=== PATIENT | female | born 2000 | race African-American/Black ===

== ENCOUNTER 2021-11-18 17:37 | Day surgery (SDC) | payer BC ==
[2021-11-18] MEDS ORDERED: hydrALAZINE 20 MG/ML VIAL SLOW IVP PRN (17:55)
[2021-11-18 18:09] VITALS: BMI 20.5
[2021-11-18] MEDS ORDERED: Lactated Ringer's 1,000 ML IV SCH (18:30)
[2021-11-18 20:50] LABS: Bilirubin Neg (Negative); Blood, Urine Negative (Negative); Clarity Clear (Clear); Glucose, Urine (Dipstick) Normal (Negative); Ketone, Urine Negative (Negative); Leukocyte 100 (Negative); Nitrite Negative (Negative); Protein, Urine (Dipstick) Negative (Neg-Trace); Urobilinogen Normal mg/dL (Less than 2)
[2021-11-18 20:51] LABS: Urine Culture Reflex No No
[2021-11-18 20:57] LABS: Bacteria/HPF Rare-Few HPF (None Seen); RBC/HPF 0-3 HPF (0-3); Squamous Epithelial 0-3 HPF (0-3)
[2021-11-19] MEDS ORDERED: Prenatal Vitamin 1 TAB PO SCH (09:00)
== END 2021-11-18 22:29 | disposition home or self-care (01) ==
LOC: CSHLD/OP 17:37
PROVIDERS: ATTEND Obstetrics & Gynecology
DX: O26.852 Spotting complicating pregnancy, second trimester (principal); Z3A.26 26 weeks gestation of pregnancy
CPT/HCPCS: 81001; 87086; 87480; 87510; 87660; 96360; 99285

== ENCOUNTER 2021-12-26 15:01 | Day surgery (SDC) | payer BC ==
[2021-12-26 15:38] VITALS: BMI 21.1
[2021-12-26] MEDS ORDERED: hydrALAZINE 20 MG/ML VIAL SLOW IVP PRN (16:37)
[2021-12-26] MEDS ORDERED: Lactated Ringer's 1,000 ML IV SCH (16:45)
[2021-12-26] MEDS ORDERED: Acetaminophen 500 MG TAB PO SCH (17:00)
== END 2021-12-26 18:10 | disposition home health service (06) ==
LOC: CSHLD/OP 15:01
PROVIDERS: ATTEND Obstetrics & Gynecology
DX: O26.893 Other specified pregnancy related conditions, third trimester (principal); R55 Syncope and collapse; R10.31 Right lower quadrant pain; Z3A.32 32 weeks gestation of pregnancy
CPT/HCPCS: 96360; 96361; 99283

== ENCOUNTER 2022-02-05 05:18 | Inpatient (IN) | payer BC ==
[2022-02-05 05:52] VITALS: BMI 21.7
[2022-02-05] MEDS ORDERED: hydrALAZINE 20 MG/ML VIAL SLOW IVP PRN ×3 (06:01→18:25)
[2022-02-05] MEDS ORDERED: Butorphanol Tartrate 1 MG/ML VIAL SLOW IVP PRN (06:01)
[2022-02-05] MEDS ORDERED: Bupivacaine 0.25% HCL 30 ML VIAL ONE (07:00)
[2022-02-05] MEDS ORDERED: Ondansetron PF 4 MG/2 ML Vial IVP PRN ×3 (08:42→18:25)
[2022-02-05] MEDS ORDERED: Carboprost 250 MCG/ML AMP IM PRN (08:42)
[2022-02-05] MEDS ORDERED: Promethazine HCl 25 MG/ML VIAL IM PRN ×3 (08:42→18:25)
[2022-02-05] MEDS ORDERED: Methylergonovine 0.2 MG/ML VIAL IM PRN ×2 (08:42→18:25)
[2022-02-05] MEDS ORDERED: HYDROcodone/Acetaminophen 5/325 mg Tablet PO PRN ×3 (08:42→18:25)
[2022-02-05] MEDS ORDERED: Misoprostol 200 MCG TAB PR PRN (08:42)
[2022-02-05] MEDS ORDERED: Diphenoxylate HCl/Atropine Tablet PO PRN ×2 (08:42)
[2022-02-05] MEDS ORDERED: Lidocaine 1% (PF) 30 ML VIAL SC PRN (08:42)
[2022-02-05] MEDS ORDERED: Ibuprofen 800 MG TAB PO PRN (08:42)
[2022-02-05] MEDS ORDERED: Acetaminophen 500 MG TAB PO PRN (08:42)
[2022-02-05] MEDS ORDERED: Lactated Ringer's 1,000 ML IV SCH (08:45)
[2022-02-05] MEDS ORDERED: NS w/ Oxytocin 30 units 500 ML IV SCH ×2 (08:45→18:25)
[2022-02-05 09:14] LABS: Hemoglobin 8.2 g/dL (12.0-15.5); Mean Corpuscular HGB CONC 29.8 g/dL (32.0-36.0); Mean Corpuscular Volume 73.9 fl (81.6-98.3); Platelet Count 445 10x3/uL (150-450); RBC Distribution Width 17.3 % (11.5-14.5); Red Blood Cell (RBC) Count 3.72 10x6/uL (3.90-5.03); White Blood Cell (WBC) Count 10.5 10x3/uL (3.5-10.5)
[2022-02-05 09:48] LABS: HBSAg Index 0.15 S/CO (0-0.99); Hep B Surf Ag Non-Reactive S/CO (NonReactive)
[2022-02-05 09:57] LABS: Syphilis Antibody Nonreactive (Nonreactive); Syphilis Antibody Index 0.05 S/CO (<1.00 Non-Reactive)
[2022-02-05] MEDS ORDERED: Fentanyl 2 mcg/Bup 0.1% Cadd 100 ML ONE (10:01)
[2022-02-05] MEDS ORDERED: ePHEDrine Sulfate 50 MG/10 ML VIAL SLOW IVP PRN (10:03)
[2022-02-05] MEDS ORDERED: Naloxone HCl 0.4 mg/ml Vial IVP PRN ×2 (10:03)
[2022-02-05] MEDS ORDERED: diphenhydrAMINE 50 MG/ML VIAL IVP PRN (10:03)
[2022-02-05] MEDS ORDERED: Acetaminophen 325 MG TAB PO PRN (10:03)
[2022-02-05] MEDS ORDERED: Moisturizing Cream (Eucerin) 113 GM JAR TOP PRN (10:03)
[2022-02-05] MEDS ORDERED: Lactated Ringer's 500 ML IV PRN (10:06)
[2022-02-05] MEDS ORDERED: Fentanyl 2 mcg/Bupivacaine 0.1% Cassette 100 ML EPIDURAL SCH (10:15)
[2022-02-05] MEDS ORDERED: Communication Order-Pharmacy FS SCH (10:15)
[2022-02-05 10:31] LABS: SARS-CoV-2 NAA Rapid Test Not Detected (NotDetected)
[2022-02-05] MEDS ORDERED: Lanolin Ointment 7 GM TUBE TOP PRN (18:25)
[2022-02-05] MEDS ORDERED: Preparation H Ointment 28 GM TUBE PR PRN (18:25)
[2022-02-05] MEDS ORDERED: diphenhydrAMINE 25 MG CAP PO PRN (18:25)
[2022-02-05] MEDS ORDERED: Bisacodyl 10 MG SUPP PR PRN (18:25)
[2022-02-05] MEDS ORDERED: Varicella virus, LIVE 0.5 ML VIAL SC ONE (18:25)
[2022-02-05] MEDS ORDERED: Boostrix 0.5 ML (Tdap) VIAL (>/=7 yrs of age) IM ONE (18:25)
[2022-02-05] MEDS ORDERED: Zolpidem Tartrate 5 MG TAB PO PRN (18:25)
[2022-02-05] MEDS ORDERED: Misoprostol 200 MCG TAB VAG PRN (18:25)
[2022-02-05] MEDS ORDERED: Milk Of Magnesia 30 ML UDCUP PO PRN (18:25)
[2022-02-05] MEDS ORDERED: Benzocaine-Menthol 82.5 ML CAN TOP PRN (18:25)
[2022-02-05] MEDS ORDERED: Measles/Mumps/Rubella 10 MCG/0.5 ML VIAL SC ONE (18:25)
[2022-02-05] MEDS ORDERED: Ferrous Sulfate 325 MG TAB PO SCH (19:00)
[2022-02-05] MEDS: Ibuprofen 800 MG TAB PO SCH (21:18)
[2022-02-05] MEDS: Docusate 100 MG CAP PO SCH (21:18)
[2022-02-06 05:02] LABS: #Basophils 0.1 10x3/uL (0.0-0.2); #Eosinphils 0.2 10x3/uL (0.0-0.5); #Monocytes 1.5 10x3/uL (0.0-1.1); #Neutrophils 13.1 10x3/uL (1.5-8.4); %Basophils 0.4 % (0.0-2.0); %Eosinophils 1.1 % (0.0-6.0); %Lymphocytes 9.9 % (18.0-47.0); %Monocytes 8.9 % (0.0-10.0); %Neutrophils 79.2 % (40.0-75.0); Hemoglobin 6.6 g/dL (12.0-15.5); Mean Corpuscular HGB CONC 30.7 g/dL (32.0-36.0); Mean Corpuscular Hemoglobin 22.6 pg (27.0-33.0); Mean Corpuscular Volume 73.6 fl (81.6-98.3); Platelet Count 259 10x3/uL (150-450); RBC Distribution Width 17.3 % (11.5-14.5); Red Blood Cell (RBC) Count 2.92 10x6/uL (3.90-5.03); White Blood Cell (WBC) Count 16.6 10x3/uL (3.5-10.5)
[2022-02-06] MEDS: Ibuprofen 800 MG TAB PO SCH ×3 (05:14→21:33)
[2022-02-06] MEDS: Prenatal Vitamin 1 TAB PO SCH (08:50)
[2022-02-06] MEDS: Docusate 100 MG CAP PO SCH ×2 (08:50→21:33)
[2022-02-06] MEDS: Ferrous Sulfate 325 MG TAB PO SCH ×2 (08:51→16:55)
[2022-02-07] MEDS: Ibuprofen 800 MG TAB PO SCH (05:54)
[2022-02-07 07:58] VITALS: TEMP 97.9
[2022-02-07] MEDS: Ferrous Sulfate 325 MG TAB PO SCH (08:31)
[2022-02-07] MEDS: Docusate 100 MG CAP PO SCH (08:31)
[2022-02-07] MEDS: Prenatal Vitamin 1 TAB PO SCH (08:31)
[2022-02-07 08:33] VITALS: BP 124/78
== END 2022-02-07 10:55 | disposition home or self-care (01) | DRG 807 ==
LOC: CSHLD/OP 05:18 → CSHLD 08:31 → CSHPP 18:00
PROVIDERS: ADMIT Obstetrics & Gynecology; ATTEND Obstetrics & Gynecology
PROC: 10E0XZZ Delivery of Products of Conception, External Approach (ICD-10-PCS; principal; 2022-02-05)
PROC: 0KQM0ZZ Repair Perineum Muscle, Open Approach (ICD-10-PCS; 2022-02-05)
DX: O70.1 Second degree perineal laceration during delivery (principal); Z37.0 Single live birth; Z3A.38 38 weeks gestation of pregnancy
CPT/HCPCS: 36415; 51702; 85025; 85027; 86780; 86850; 86900; 86901; 87340; 90715; 99285; J0595; S0020; U0002

== ENCOUNTER 2024-01-09 22:52 | Emergency (ER) | payer SELFPAY ==
[2024-01-10 00:25] LABS: Influenza A by NAA Not Detected (NotDetected); Influenza B by NAA Not Detected (NotDetected); SARS-CoV-2 NAA Rapid Test Not Detected (NotDetected)
== END 2024-01-10 01:42 | disposition home or self-care (01) ==
LOC: CSHERS 22:52
DX: J02.9 Acute pharyngitis, unspecified (principal)
CPT/HCPCS: 96372; 99283